=== PATIENT | female | born 1990 | race Caucasian/White ===

== ENCOUNTER 2020-10-23 05:58 | Inpatient (IN) ==
[2020-10-23] MEDS ORDERED: Sodium Citrate/Citric Acid LIQ 15 ML UDC ONE (06:12)
[2020-10-23] MEDS ORDERED: ceFAZolin 2 GM PREMIX 2 GM/50 ML BAG IVPB ONE (06:45)
[2020-10-23] MEDS ORDERED: Midazolam 2 mg/2 ml VIAL 1 mg/ml 2 ml VIAL (2 mg) ONE (07:31)
[2020-10-23] MEDS ORDERED: Morphine PF AMP (0.5MG/ML) 5 MG/10 ML AMP ONE (07:31)
[2020-10-23 07:32] LABS: Urine Benzodiazepine Screen None Detected (None Detect); Urine Opiates Screen None Detected (None Detect)
[2020-10-23] MEDS ORDERED: Rocuronium 50 mg VIAL 10 mg/ml 5 ml VIAL (50 mg) ONE (07:32)
[2020-10-23] MEDS ORDERED: Oxytocin 10 UNITS/ML 1 ML VIAL ONE (07:34)
[2020-10-23] MEDS ORDERED: Propofol 10 MG/ML 20 ML BTL ONE (07:34)
[2020-10-23] MEDS ORDERED: Ondansetron 4 mg VIAL 2 MG/ML 2 ml VIAL ONE (07:34)
[2020-10-23] MEDS ORDERED: Phenylephrine 40 mcg/mL 10mL (400mcg) SYRINGE ONE ×3 (07:35→08:41)
[2020-10-23] MEDS ORDERED: Lidocaine 2% PF 10 ML AMP ONE (07:36)
[2020-10-23] MEDS ORDERED: Lidocaine 2% PF 5 ML VIAL ONE (07:36)
[2020-10-23] MEDS ORDERED: fentaNYL 250 mcg/5 ml 50 MCG/ML 5 ml VIAL (250 MCG) ONE (07:37)
[2020-10-23] MEDS ORDERED: EPHEDrine (Pressors) 50 MG/ML VIAL ONE (08:10)
[2020-10-23] MEDS ORDERED: Naloxone 0.4 mg VIAL 0.4 mg/ml 1 ml VIAL IV PRN (08:37)
[2020-10-23] MEDS ORDERED: Ondansetron 4 mg VIAL 2 MG/ML 2 ml VIAL IV PRN (08:37)
[2020-10-23] MEDS ORDERED: Acetaminophen IV 1 GM/100ML 1,000 MG/100 ML VIAL IVPB PRN (08:39)
[2020-10-23] MEDS ORDERED: Witch Hazel PAD JAR TOPICAL PRN (09:58)
[2020-10-23] MEDS ORDERED: Dibucaine 1% OINT 28.35 GM TUBE PR PRN (09:58)
[2020-10-23] MEDS ORDERED: Lactated Ringers 1000 ml BAG 1,000 ML IV SCH (10:00)
[2020-10-23 11:42] LABS: Urine Appearance Clear; Urine Bilirubin Negative (Negative); Urine Blood 1+ (Negative); Urine Color Straw; Urine Glucose Negative (Negative); Urine Ketones Negative (Negative); Urine Nitrite Negative (Negative); Urine Protein Negative (Negative); Urine Specific Gravity 1.006 (1.002-1.030); Urine Urobilinogen Negative (Negative)
[2020-10-23 11:58] LABS: Urine Bacteria Absent (Absent); Urine Red Blood Cell Trace(0-2/hpf) (Absent); Urine Squamous Epithelial Cell Present (Absent); Urine White Blood Cell Trace(0-5/hpf) (Absent)
[2020-10-24 07:23] LABS: ABS Lymphocytes 1.4 10^3/ul (1.0-4.8); ABS Monocytes 0.7 10^3/ul (0-0.8); Eosinophil % 0.2 %; Hematocrit 28 % (35-47); Hemoglobin 9.4 g/dL (12.0-16.0); Lymphocyte % 12.2 %; Mean Corpuscular HGB Conc 33 g/dL (31-36); Mean Corpuscular Hemoglobin 28 pg (27-31); Mean Corpuscular Volume 83 fL (80-97); Mean Platelet Volume 6.7 fL (7.4-10.4); Platelet Count 237 10^3/uL (150-450); Red Blood Count 3.41 10^6 /uL (3.70-4.87); Red Cell Distribution Width 14 % (10-15); White Blood Count 11.2 10^3/uL (3.5-10.8)
[2020-10-25 08:17] VITALS: BP 124/83
[2020-10-25] MEDS ORDERED: RHO D Immune Globulin (HUMAN) 300 MCG = 1,500 I.U. INJ IM ONE (09:08)
== END 2020-10-25 12:40 | disposition home or self-care (01) | DRG 540 ==
LOC: MCHOB 05:58
PROVIDERS: ADMIT Obstetrics & Gynecology; ATTEND Obstetrics & Gynecology